=== PATIENT | male | born 1970 | race Caucasian/White ===

== ENCOUNTER 2024-12-27 09:30 | Outpatient (CLI) | payer OTHER | END 2024-12-27 09:31 | disposition home or self-care (01) | LOC: CSHSLEEP 09:30 | PROVIDERS: ATTEND Internal Medicine | DX: G47.33 Obstructive sleep apnea (adult) (pediatric) (principal); E11.9 Type 2 diabetes mellitus without complications; E66.9 Obesity, unspecified; Z68.42 Body mass index [BMI] 45.0-49.9, adult; I10 Essential (primary) hypertension | CPT/HCPCS: 95811 ==